=== PATIENT | male | born 2000 | race Hispanic/Latino ===

== ENCOUNTER 2021-12-18 17:07 | Emergency (ER) | payer OTHER ==
[~2021-12-18] VITALS: Ht 182.9 cm; Wt 67.6 kg
[2021-12-18 17:09] VITALS: BP 139/65
[2021-12-18] MEDS ORDERED: PROPARACAINE 0.5% OPHTH SOL 15ML OS ONE (17:35)
[2021-12-18] MEDS ORDERED: FLUORESCEIN OPHTH 1 MG STRIP OS ONE (17:35)
== END 2021-12-18 19:27 | disposition home or self-care (01) ==
LOC: M ED 17:07
DX: H10.212 Acute toxic conjunctivitis, left eye (principal); T52.0X1A Toxic effect of petroleum products, accidental (unintentional), initial encounter; Y99.1 Military activity; F17.200 Nicotine dependence, unspecified, uncomplicated